=== PATIENT | male | born 1980 | race Caucasian/White ===

== ENCOUNTER 2022-06-11 18:26 | Emergency (ER) | payer SELFPAY ==
[2022-06-11] MEDS ORDERED: Morphine 4 MG/ML Syringe IVPUSH ONE (19:52)
[2022-06-11] MEDS ORDERED: Lidocaine/Prilocaine 2.5-2.5% Crm 5 GM Tube TOP ONE (19:52)
[2022-06-11] MEDS ORDERED: Lidocaine 1% with EPINEPHrine 1:100,000 10 ML MDV INJECT ONE (19:53)
[2022-06-11] MEDS ORDERED: Lidocaine 1% with EPINEPHrine 1:100,000 20 ML MDV INJECT STA (19:58)
[2022-06-11] MEDS ORDERED: Lidocaine/Epineph/Tetracaine 3 ML Syringe TOP ONE (20:00)
== END 2022-06-11 20:47 | disposition home or self-care (01) ==
LOC: MW.ED 18:26
DX: L02.214 Cutaneous abscess of groin (principal); E11.9 Type 2 diabetes mellitus without complications
CPT/HCPCS: 10060; 96374; 99282; A9270; J2270; 99283; J3490

== ENCOUNTER 2022-07-13 10:45 | Emergency (ER) | payer SELFPAY ==
[2022-07-13] MEDS ORDERED: Acetaminophen 500 MG Tab PO ONE (10:59)
== END 2022-07-13 12:58 | disposition home or self-care (01) ==
LOC: MW.ED 10:45
DX: M54.41 Lumbago with sciatica, right side (principal); E11.9 Type 2 diabetes mellitus without complications; Z79.84 Long term (current) use of oral hypoglycemic drugs
CPT/HCPCS: 72100; 99283; A9270

== ENCOUNTER 2022-11-25 12:25 | Emergency (ER) | payer SELFPAY ==
[2022-11-25] MEDS ORDERED: Ketorolac 60 MG/2 ML SDV IM ONE (14:24)
[2022-11-25] MEDS ORDERED: Cyclobenzaprine 10 MG Tab PO ONE (14:24)
[2022-11-25] MEDS ORDERED: Lidocaine 4% 1 each Patch TOP STA (14:25)
== END 2022-11-25 15:23 | disposition home or self-care (01) ==
LOC: MW.ED 12:25
DX: S76.011A Strain of muscle, fascia and tendon of right hip, initial encounter (principal); E11.9 Type 2 diabetes mellitus without complications; Z79.899 Other long term (current) drug therapy; X50.9XXA Other and unspecified overexertion or strenuous movements or postures, initial encounter; Y92.69 Other specified industrial and construction area as the place of occurrence of the external cause
CPT/HCPCS: 96372; 99283; A9270; J1885; 99282